=== PATIENT | male | born 1960 | race Caucasian/White ===

== ENCOUNTER 2019-07-21 09:03 | Inpatient (IN) | payer OTHER ==
[~2019-07-21] VITALS: Ht 170.2 cm; Wt 86.9 kg
[2019-07-21] MEDS ORDERED: ONDANSETRON PF 4 MG/2 ML VIAL. IV ONE (09:15)
--- NOTE | 2019-07-21 09:18 | PHYS DOC ---
General Adult HPI: HPI: 58-year-old male past medical history hyperlipidemia presents with a chief complaint of dizziness associated with nausea. Patient states sudden onset around 070 0 hours. Patient states dizziness is worse with movement and improved with remaining still. Patient denies any associated headache chest pain or shortness of breath. Patient denies any previous similar symptoms. On exam patient is alert noted x4 he has no facial droop slurred speech or focal weakness. Dizziness worse with head movement and lights. Review of Systems: Review of Systems: Constitutional: Denies fever or chills. [] Eyes: Denies change in visual acuity. [] HENT: Denies nasal congestion or sore throat. [] Respiratory: Denies cough or shortness of breath. [] Cardiovascular: Denies chest pain or edema. [] GI: Denies abdominal pain,, bloody stools or diarrhea. [Positive nausea positive vomiting] : Denies dysuria. [] Musculoskeletal: Denies back pain or joint pain. [] Integument: Denies rash. [] Neurologic: Denies headache, focal weakness or sensory changes. [Positive dizziness] Endocrine: Denies polyuria or polydipsia. [] Lymphatic: Denies swollen glands. [] Psychiatric: Denies depression or anxiety. [] Heart Score: Risk Factors: Risk Factors: DM, Current or recent (<one month) smoker, HTN, HLP, family history of CAD, obesity. Risk Scores: Score 0 - 3: 2.5% MACE over next 6 weeks - Discharge Home Score 4 - 6: 20.3% MACE over next 6 weeks - Admit for Clinical Observation Score 7 - 10: 72.7% MACE over next 6 weeks - Early Invasive Strategies Current Medications: Current Medications Medications (Trade) Dose Ordered Sig/[facility] Start Time Stop Time Status Last Admin Dose Admin Ondansetron HCl (Zofran) 4 mg 1X ONCE 07/21/19 09:15 07/21/19 09:16 UNV Physical Exam: PE: Constitutional: Well developed, well nourished, no acute distress, non-toxic appearance. [] HENT: Normocephalic, atraumatic, bilateral external ears normal, oropharynx moist, no oral exudates, nose normal. [] Eyes: PERRLA, EOMI, conjunctiva normal, no discharge. [] Neck: Normal range of motion, no tenderness, supple, no stridor. [] Cardiovascular:Heart rate regular rhythm, no murmur [] Lungs & Thorax: Bilateral breath sounds clear to auscultation [] Abdomen: Bowel sounds normal, soft, no tenderness, no masses, no pulsatile masses. [] Skin: Warm, dry, no erythema, no rash. [] Back: No tenderness, no CVA tenderness. [] Extremities: No tenderness, no cyanosis, no clubbing, ROM intact, no edema. [] Neurologic: Alert and oriented X 3, normal motor function, normal sensory function, no focal deficits noted. [] Psychologic: Affect normal, judgement normal, mood normal. [] EKG: EKG: [] EKG performed at 9:19 AM. Heart rate 59 No STEMI Sinus rhythm Radiology/Procedures: Radiology/Procedures: [] Course & Med Decision Making: Course & Med Decision Making Pertinent Labs and Imaging studies reviewed. (See chart for details) []Patient was treated with zofran and versed 1mg. Patient states feels improved post treatment--- dizziness still presents but greatly improved. Patient ambulated to bathroom with steady gait. Dragon Disclaimer: Keely Disclaimer: This electronic medical record was generated, in whole or in part, using a voice recognition dictation system. Departure Departure Impression: Primary Impression: Dizziness Additional Impression: Nausea & vomiting Disposition: ADMITTED INPATIENT Admitting Physician: DAMARIS WHARTON DO July 21, 2019 09:18
[2019-07-21 09:23] LABS: BASO # 0.1 x10^3/uL (0.0-0.2); BASO % 1 % (0-3); EOS # 0.1 x10^3/uL (0.0-0.7); EOS % 1 % (0-3); HEMOGLOBIN 16.4 g/dL (13.0-17.5); LYMPH # 2.2 x10^3/uL (1.0-4.8); LYMPH % 17 % (24-48); MEAN CORPUSCULAR HEMOGLOBIN 31 pg (25-35); MEAN CORPUSCULAR HGB CONC 35 g/dL (31-37); MEAN CORPUSCULAR VOLUME 88 fL (79-100); MONO # 0.8 x10^3/uL (0.0-1.1); MONO % 6 % (0-9); NEUT # 9.8 x10^3/uL (1.8-7.7); NEUT % 75 % (31-73); PLATELET COUNT 220 x10^3/uL (140-400); RED BLOOD COUNT 5.33 x10^6/uL (4.30-5.70); RED CELL DISTRIBUTION WIDTH 13.5 % (11.5-14.5)
[2019-07-21] MEDS ORDERED: ONDANSETRON PF 4 MG/2 ML VIAL. ONE (09:30)
[2019-07-21 09:32] LABS: CALCIUM 8.5 mg/dL (8.5-10.1); CREATININE 0.9 mg/dL (0.7-1.3); GFR 87.3; POTASSIUM 3.8 mmol/L (3.5-5.1)
[2019-07-21 09:38] LABS: ALBUMIN 3.5 g/dL (3.4-5.0); TOTAL BILIRUBIN 0.7 mg/dL (0.2-1.0)
[2019-07-21] MEDS ORDERED: ONDANSETRON PF 4 MG/2 ML VIAL. IVP ONE (09:45)
--- NOTE | 2019-07-21 10:24 | RAD ---
CT HEAD WO CONTRAST Date: 07/21/2019 9:15 AM Clinical Indication: Dizziness Comparison: None. Technique: 5 mm axial tomographic images were obtained of the head without contrast. These were viewed on brain and bone windows. One or more of the following dose reduction techniques were utilized: Automated exposure control (AEC), Adjustment of mA and/or kV according to patient size, Use of iterative reconstruction technique such as ASiR, CT scan done according to ALARA and image gently/image wisely Findings: The brain parenchyma is normal in attenuation. No intra- or extra-axial mass or fluid collection. No acute hemorrhage. The ventricles are normal in size, shape, and morphology. The mills-white matter junction is normal. The subarachnoid cisterns are patent. The visualized paranasal sinuses are normal. The visualized portions of the orbits and globes are normal. The mastoid air cells are clear. The project design engineer topogram shows no lytic lesion or fracture. Impression: No acute intracranial process. Electronically signed by: Patrick Tomas MD (07/21/2019 10:21 AM) [id number]
[2019-07-21] MEDS ORDERED: MIDAZOLAM HCL/PF 5 MG/5 ML VIAL. IV ONE (10:45)
[2019-07-21] MEDS ORDERED: MIDAZOLAM HCL/PF 5 MG/5 ML VIAL. NS ONE (11:00)
--- NOTE | 2019-07-21 11:04 | EKG ---
[facility] [address] [place] [address] Test Date: 2019-07-21 Test Time: 09:19:26 Pat Name: MIHAELA DOUGLAS Department: Room: Gender: M Applications Programmer Analyst: : [id number] Requested By: DAMARIS SORENSON Order Number: [id number] Reading MD: Adán Romero Measurements Intervals [place] Rate: 59 P: 28 OK: 166 QRS: 44 QRSD: 90 T: 24 QT: 438 QTc: 438 Interpretive Statements SINUS RHYTHM EARLY REPOLARIZATION ABNORMALITY Electronically Signed On 07-22-2019 8:21:38 CDT by Adán Romero
[2019-07-21] MEDS ORDERED: IOHEXOL 300 MG/ML 100ML VIAL. IV ONE (11:15)
--- NOTE | 2019-07-21 11:35 | PDOC1 ---
History and Physical Date of Admission Date of Admission DATE: 07/21/19 TIME: 11:35 Identification/Chief Complaint Chief Complaint Nausea and vomiting Source Source: Patient History of Present Illness History of Present Illness Mr Dailey is a 58 yo M w/ PMHx hyperlipidemia who p/w dizziness associated with nausea. Patient states sudden onset around 0700 this morning, 07/21/2019 while at work. He notes he took his cholesterol med and vitamins on an empty stomach, which is unusual for him. Patient stated dizziness wass worse with movement and improved with remaining still. Patient denies any associated headache chest pain or shortness of breath. Patient denies any previous similar symptoms. On exam patient is alert noted x4 he has no facial droop slurred speech or focal weakness. He underwent negative CT head and CTA head and neck and found ground glass opacities in bilateral upper lobes and therefore ED tested him for COVID 19, admitted for further care. On further ROS he notes his right elbow has been bothering him at work lately. Glucose 221, WBC 13K, troponin negative. EKG NSR. Past Medical History Cardiovascular: Hyperlipidemia Past Surgical History Past Surgical History: No pertinent history Family History Family History: Cancer (Bone cancer in mother), Diabetes (Father) Social History Smoke: Quit (1997 Quit) ALCOHOL: social Drugs: None Current Medications Current Medications Current Medications Ondansetron HCl (Zofran) 4 mg 1X ONCE IV ; Start 07/21/19 at 09:15; Stop 07/21/19 at 09:16; Status DC Ondansetron HCl (Zofran) 4 mg STK-MED ONCE .ROUTE ; Start 07/21/19 at 09:30; Stop 07/21/19 at 09:30; Status DC Ondansetron HCl (Zofran) 4 mg 1X ONCE IVP Last administered on 07/21/19at 09:38; Start 07/21/19 at 09:45; Stop 07/21/19 at 09:46; Status DC Midazolam HCl (Versed) 2.5 mg 1X ONCE IV ; Start 07/21/19 at 10:45; Stop 07/21/19 at 10:48; Status DC Midazolam HCl (Versed) 1 mg 1X ONCE NS Last administered on 07/21/19at 11:05; Start 07/21/19 at 11:00; Stop 07/21/19 at 11:01; Status DC Iohexol (Omnipaque 300 Mg/ml) 75 ml 1X ONCE IV Last administered on 07/21/19at 11:22; Start 07/21/19 at 11:15; Stop 07/21/19 at 11:16; Status DC Allergies Allergies: Coded Allergies: No Known Drug Allergies (Unverified , 07/21/19) ROS General: No: Chills, Night Sweats, Fatigue, Malaise, Appetite, Other PSYCHOLOGICAL ROS: No: Anxiety, Behavioral Disorder, Concentration difficultie, Decreased libido, Depression, Disorientation, Hallucinations, Hostility, Irritablity, Memory difficulties, Mood Swings, Obsessive thoughts, Physical abuse, Sexual abuse, Sleep disturbances, Suicidal ideation, Other Eyes: No Blurry vision, No Decreased vision, No Double vision, No Dry eyes, No Excessive tearing, No Eye Pain, No Itchy Eyes, No Loss of vision, No Photophobia, No Scotomata, No Uses contacts, No Uses glasses, No Other HEENT: No: Heacaches, Visual Changes, Hearing change, Nasal congestion, Nasal discharge, Oral lesions, Sinus pain, Sore Throat, Epistaxis, Sneezing, Snoring, Tinnitus, Vertigo, Vocal changes, Other ALLERGY AND IMMUNOLOGY: No: Hives, Insect Bite Sensitivity, Itchy/Watery Eyes, Nasal Congestion, Post Nasal Drip, Seasonal Allergies, Other Hematological and Lymphatic: No: Bleeding Problems, Blood Clots, Blood Transfusions, Brusing, Night Sweats, Pallor, Swollen Lymph Nodes, Other ENDOCRINE: No: Breast Changes, Galactorrhea, Hair Pattern Changes, Hot Flashes, Malaise/lethargy, Mood Swings, Palpitations, Polydipsia/polyuria, Skin Changes, Temperature Intolerance, Unexpected Weight Changes, Other Breast: No New/Changing Breast Lumps, No Nipple changes, No Nipple discharge, No Other Respiratory: No: Cough, Hemoptysis, Orthopnea, Pleuritic Pain, Shortness of breath, SOB with excertion, Sputum Changes, Stridor, Tachypnea, Wheezing, Other Cardiovascular: No Chest Pain, No Palpitations, No Orthopnea, No Paroxysmal Noc. Dyspnea, No Edema, No Lt Headedness, No Other Gastrointestinal: Yes Nausea, Yes Vomiting; No Abdominal Pain, No Diarrhea, No Constipation, No Melena, No Hematochezia, No Other Genitourinary: No Dysuria, No Frequency, No Incontinence, No Hematuria, No Retention, No Discharge, No Urgency, No Pain, No Flank Pain, No Other, No , No , No , No , No , No , No Musculoskeletal: Yes Joint Pain; No Gait Disturbance, No Joint Stiffness, No Joint Swelling, No Muscle Pain, No Muscular Weakness, No Pain In:, No Swelling In:, No Other Neurological: Yes Dizziness; No Behavorial Changes, No Bowel/Bladder ControlChng, No Confusion, No Gait Disturbance, No Headaches, No Impaired Coord/balance, No Memory Loss, No Numbness/Tingling, No Seizures, No Speech Problems, No Tremors, No Visual Changes, No Weakness, No Other Skin: No Dry Skin, No Eczema, No Hair Changes, No Lumps, No Mole Changes, No Mottling, No Nail Changes, No Pruritus, No Rash, No Skin Lesion Changes, No Other, No Acne Physical Exam General: Alert, Oriented X3, Cooperative, No acute distress HEENT: Atraumatic, PERRLA, EOMI, Mucous membr. moist/pink Lungs: Clear to auscultation, Normal air movement Heart: S1S2, RRR, no thrills, no rubs, no gallops, no murmurs Abdomen: Normal bowel sounds, Soft, No tenderness, No hepatosplenomegaly, No masses Rectal Exam: not examined Extremities: No clubbing, No cyanosis, No edema, Normal pulses, No tenderness/swelling, Other (Right elbow anconeus tenderness) Skin: No rashes, No breakdown, No significant lesion Neuro: Normal gait, Normal speech, Strength at 5/5 X4 ext, Normal tone, Sensation intact, Cranial nerves 3-12 NL, Reflexes 2+ Psych/Mental Status: Mental status NL, Mood NL Vitals Vitals Vital Signs Date Time Temp Pulse Resp B/P (MAP) Pulse Ox O2 Delivery O2 Flow Rate FiO2 07/21/19 11:04 74 16 130/78 (95) 93 Room Air 07/21/19 09:03 97.5 97.5 Labs Labs Laboratory Tests Test 07/21/19 09:10 White Blood Count 13.0 x10^3/uL (4.0-11.0) Red Blood Count 5.33 x10^6/uL (4.30-5.70) Hemoglobin 16.4 g/dL (13.0-17.5) Hematocrit 47.0 % (39.0-53.0) Mean Corpuscular Volume 88 fL (79-100) Mean Corpuscular Hemoglobin 31 pg (25-35) Mean Corpuscular Hemoglobin Concent 35 g/dL (31-37) Red Cell Distribution Width 13.5 % (11.5-14.5) Platelet Count 220 x10^3/uL (140-400) Neutrophils (%) (Auto) 75 % (31-73) Lymphocytes (%) (Auto) 17 % (24-48) Monocytes (%) (Auto) 6 % (0-9) Eosinophils (%) (Auto) 1 % (0-3) Basophils (%) (Auto) 1 % (0-3) Neutrophils # (Auto) 9.8 x10^3/uL (1.8-7.7) Lymphocytes # (Auto) 2.2 x10^3/uL (1.0-4.8) Monocytes # (Auto) 0.8 x10^3/uL (0.0-1.1) Eosinophils # (Auto) 0.1 x10^3/uL (0.0-0.7) Basophils # (Auto) 0.1 x10^3/uL (0.0-0.2) Sodium Level 138 mmol/L (136-145) Potassium Level 3.8 mmol/L (3.5-5.1) Chloride Level 103 mmol/L (98-107) Carbon Dioxide Level 24 mmol/L (21-32) Anion Gap 11 (6-14) Blood Urea Nitrogen 12 mg/dL (8-26) Creatinine 0.9 mg/dL (0.7-1.3) Estimated GFR (Cockcroft-Gault) 87.3 BUN/Creatinine Ratio 13 (6-20) Glucose Level 221 mg/dL (70-99) Calcium Level 8.5 mg/dL (8.5-10.1) Total Bilirubin 0.7 mg/dL (0.2-1.0) Aspartate Amino Transf (AST/SGOT) 22 U/L (15-37) Alanine Aminotransferase (ALT/SGPT) 36 U/L (16-63) Alkaline Phosphatase 58 U/L (46-116) Creatine Kinase 129 U/L (39-308) Creatine Kinase MB (Mass) 1.3 ng/mL (0.0-3.6) Creatine Kinase MB Relative Index 1.0 % (0-4) Troponin I Quantitative < 0.017 ng/mL (0.000-0.055) Total Protein 7.0 g/dL (6.4-8.2) Albumin 3.5 g/dL (3.4-5.0) Albumin/Globulin Ratio 1.0 (1.0-1.7) Laboratory Tests Test 07/21/19 09:10 White Blood Count 13.0 x10^3/uL (4.0-11.0) Red Blood Count 5.33 x10^6/uL (4.30-5.70) Hemoglobin 16.4 g/dL (13.0-17.5) Hematocrit 47.0 % (39.0-53.0) Mean Corpuscular Volume 88 fL (79-100) Mean Corpuscular Hemoglobin 31 pg (25-35) Mean Corpuscular Hemoglobin Concent 35 g/dL (31-37) Red Cell Distribution Width 13.5 % (11.5-14.5) Platelet Count 220 x10^3/uL (140-400) Neutrophils (%) (Auto) 75 % (31-73) Lymphocytes (%) (Auto) 17 % (24-48) Monocytes (%) (Auto) 6 % (0-9) Eosinophils (%) (Auto) 1 % (0-3) Basophils (%) (Auto) 1 % (0-3) Neutrophils # (Auto) 9.8 x10^3/uL (1.8-7.7) Lymphocytes # (Auto) 2.2 x10^3/uL (1.0-4.8) Monocytes # (Auto) 0.8 x10^3/uL (0.0-1.1) Eosinophils # (Auto) 0.1 x10^3/uL (0.0-0.7) Basophils # (Auto) 0.1 x10^3/uL (0.0-0.2) Sodium Level 138 mmol/L (136-145) Potassium Level 3.8 mmol/L (3.5-5.1) Chloride Level 103 mmol/L (98-107) Carbon Dioxide Level 24 mmol/L (21-32) Anion Gap 11 (6-14) Blood Urea Nitrogen 12 mg/dL (8-26) Creatinine 0.9 mg/dL (0.7-1.3) Estimated GFR (Cockcroft-Gault) 87.3 BUN/Creatinine Ratio 13 (6-20) Glucose Level 221 mg/dL (70-99) Calcium Level 8.5 mg/dL (8.5-10.1) Total Bilirubin 0.7 mg/dL (0.2-1.0) Aspartate Amino Transf (AST/SGOT) 22 U/L (15-37) Alanine Aminotransferase (ALT/SGPT) 36 U/L (16-63) Alkaline Phosphatase 58 U/L (46-116) Creatine Kinase 129 U/L (39-308) Creatine Kinase MB (Mass) 1.3 ng/mL (0.0-3.6) Creatine Kinase MB Relative Index 1.0 % (0-4) Troponin I Quantitative < 0.017 ng/mL (0.000-0.055) Total Protein 7.0 g/dL (6.4-8.2) Albumin 3.5 g/dL (3.4-5.0) Albumin/Globulin Ratio 1.0 (1.0-1.7) Images Images Head CT non contrast: The brain parenchyma is normal in attenuation. No intra- or extra-axial mass or fluid collection. No acute hemorrhage. The ventricles are normal in size, shape, and morphology. The mills-white matter junction is normal. The subarachnoid cisterns are patent. The visualized paranasal sinuses are normal. The visualized portions of the orbits and globes are normal. The mastoid air cells are clear. The it network architect topogram shows no lytic lesion or fracture. Impression: No acute intracranial process. Head CTA: ICA: No stenosis, occlusion or aneurysm. MCA: No stenosis, occlusion or aneurysm. MELODY: No stenosis, occlusion or aneurysm. COMMUNITY HEALTH OUTREACH WORKER: No stenosis, occlusion or aneurysm. Basilar artery: No stenosis, occlusion or aneurysm. Distal vertebral arteries: No stenosis, occlusion or aneurysm. CT angiogram neck: Aortic arch: Conventional arch anatomy Common carotid arteries: No stenosis, occlusion or dissection. Internal carotid arteries: No stenosis, occlusion or dissection. External carotid arteries: Patent Vertebral arteries: High-grade stenosis of the left proximal vertebral artery Mild septal thickening with biapical ground glass opacities. Mildly enlarged right paratracheal lymph node measures 1.2 x 0.9 cm (series 3 image 62). Bones: Moderate multilevel cervical spondylosis most prominent C5-C6 and C6-C7. Impression: 1. No large vessel occlusion intracranial or within the neck. 2. High-grade stenosis of the left vertebral artery origin. 3. Mild septal thickening with biapical ground glass opacities, may represent pulmonary edema or atypical infection. CXR: AP view was taken of the chest. Lungs appear clear on the chest x-ray. Poor inspiration or mild atelectasis could potentially account for the changes on the CT arteriogram. Heart is normal in size. There is not evidence of heart failure or pulmonary edema. There is no effusion. IMPRESSION: 1. No acute infiltrates. VTE Prophylaxis Ordered VTE Prophylaxis Devices: No VTE Pharmacological Prophylaxi: Yes Assessment/Plan Assessment/Plan A/P: Nausea and vomiting - IV antiemetics. Will ADAT Dizziness - resolved by the time I examined him. Neurology was called by ED staff Leukocytosis - CBC 13K Abnormal chest CT - no COVID exposures, testing pending. 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 Stopped smoking 22 years ago. Hyperglycemia - will check A1c. father with hx of DM2 HLD - statin Right elbow pain - focal pain at anconeus muscle. Will have PT evaluate for bursitis/tennis elbow exercises. Rest. NSAIDs FEN - Regular diet, ADAT PPX - lovenox FULL CODE Dispo - inpatient for above NICCI MIRANDA MD July 21, 2019 11:35
--- NOTE | 2019-07-21 11:42 | RAD ---
CT ANGIOGRAPHY HEAD AND NECK History:Dizziness. Nausea and vomiting Technique: After bolus of intravenous contrast, volumetric CT data acquisition was acquired of the head and neck. Multiplanar reconstruction images to include MIP and 3-D reconstruction images are submitted. Exposure: One or more of the following individualized dose reduction techniques were utilized for this examination: 1. Automated exposure control 2. Adjustment of the mA and/or kV according to patient size 3. Use of iterative reconstruction technique. Comparison: July 21, 2019 Any determination of stenosis is based on NASCET criteria. Head CTA: ICA: No stenosis, occlusion or aneurysm. MCA: No stenosis, occlusion or aneurysm. MELODY: No stenosis, occlusion or aneurysm. VERIFICATION SPECIALIST: No stenosis, occlusion or aneurysm. Basilar artery: No stenosis, occlusion or aneurysm. Distal vertebral arteries: No stenosis, occlusion or aneurysm. CT angiogram neck: Aortic arch: Conventional arch anatomy Common carotid arteries: No stenosis, occlusion or dissection. Internal carotid arteries: No stenosis, occlusion or dissection. External carotid arteries: Patent Vertebral arteries: High-grade stenosis of the left proximal vertebral artery Mild septal thickening with biapical ground glass opacities. Mildly enlarged right paratracheal lymph node measures 1.2 x 0.9 cm (series 3 image 62). Bones: Moderate multilevel cervical spondylosis most prominent C5-C6 and C6-C7. Impression: 1. No large vessel occlusion intracranial or within the neck. 2. High-grade stenosis of the left vertebral artery origin. 3. Mild septal thickening with biapical ground glass opacities, may represent pulmonary edema or atypical infection. Electronically signed by: Teja Lewis DO (07/21/2019 11:39 AM) [id number]
--- NOTE | 2019-07-21 12:59 | RAD ---
AP chest. HISTORY: Abnormal lung findings on CT arteriogram of the neck. AP view was taken of the chest. Lungs appear clear on the chest x-ray. Poor inspiration or mild atelectasis could potentially account for the changes on the CT arteriogram. Heart is normal in size. There is not evidence of heart failure or pulmonary edema. There is no effusion. IMPRESSION: 1. No acute infiltrates. Electronically signed by: Rg Jacinto MD (07/21/2019 12:56 PM) [id number]
[2019-07-21 14:39] VITALS: BP 136/79
[2019-07-21] MEDS ORDERED: DOCUSATE SODIUM 100 MG CAPSULE. PO PRN (15:00)
[2019-07-21] MEDS ORDERED: LORazepam 0.5 MG TABLET PO PRN (15:00)
[2019-07-21] MEDS ORDERED: ZOLPIDEM 5 MG TABLET. PO PRN (15:00)
[2019-07-21] MEDS ORDERED: ENOXAPARIN 40 MG/0.4 ML SYRINGE. SQ SCH (15:00)
[2019-07-21] MEDS ORDERED: ONDANSETRON PF 4 MG/2 ML VIAL. IV PRN (15:00)
[2019-07-21] MEDS ORDERED: ACETAMINOPHEN 325 MG TABLET. PO PRN (15:00)
--- NOTE | 2019-07-21 16:55 | PDOC2 ---
NEUROLOGY CONSULT Date of Admission Date of Admission DATE: 07/21/19 TIME: 16:49 Reason for Consult Reason for Consult: Vertigo Referring Physician Referring Physician: Dr. Mendoza Source Source: Chart review, Patient History of Present Illness History of Present Illness The patient is a 58-year-old right-handed male who got up for work this morning. He felt like there was some fullness in the left ear. He suddenly had vertigo and nausea. He blames taking his vitamins on an empty stomach. There was no headache, diplopia, dysphagia, dysarthria, numbness, weakness, tinnitus, or hea ring loss. Symptoms were worse with movement and better when he remains still. He is now feeling fine. There is no prior history of vestibulopathy. CT angiogram showed ground glass opacities in bilateral upper lobes and therefore ED tested him for COVID 19, admitted for further care. Past Medical History Cardiovascular: Hyperlipidemia Past Surgical History Past Surgical History: No pertinent history Family History Family History: Cancer Social History Social History , steele, no alcohol or tobacco. Current Medications Current Medications Current Medications Ondansetron HCl (Zofran) 4 mg 1X ONCE IV ; Start 07/21/19 at 09:15; Stop 07/21/19 at 09:16; Status DC Ondansetron HCl (Zofran) 4 mg STK-MED ONCE .ROUTE ; Start 07/21/19 at 09:30; Stop 07/21/19 at 09:30; Status DC Ondansetron HCl (Zofran) 4 mg 1X ONCE IVP Last administered on 07/21/19at 09:38; Start 07/21/19 at 09:45; Stop 07/21/19 at 09:46; Status DC Midazolam HCl (Versed) 2.5 mg 1X ONCE IV ; Start 07/21/19 at 10:45; Stop 07/21/19 at 10:48; Status DC Midazolam HCl (Versed) 1 mg 1X ONCE NS Last administered on 07/21/19at 11:05; Start 07/21/19 at 11:00; Stop 07/21/19 at 11:01; Status DC Iohexol (Omnipaque 300 Mg/ml) 75 ml 1X ONCE IV Last administered on 07/21/19at 11:22; Start 07/21/19 at 11:15; Stop 07/21/19 at 11:16; Status DC Ondansetron HCl (Zofran) 4 mg PRN Q4HRS PRN IV NAUSEA/VOMITING; Start 07/21/19 at 15:00 Zolpidem Tartrate (Ambien) 5 mg PRN QHS PRN PO INSOMNIA; Start 07/21/19 at 15:00 Acetaminophen (Tylenol) 650 mg PRN Q4HRS PRN PO TEMP OVER 100.4F OR MILD PAIN; Start 07/21/19 at 15:00 Docusate Sodium (Colace) 100 mg PRN BID PRN PO HARD STOOLS; Start 07/21/19 at 15:00 Lorazepam (Ativan) 0.5 mg PRN Q4HRS PRN PO ANXIETY / AGITATION; Start 07/21/19 at 15:00 Enoxaparin Sodium (Lovenox 40mg Syringe) 40 mg Q24H SQ Last administered on 07/21/19at 15:56; Start 07/21/19 at 15:00 Atorvastatin Calcium (Lipitor) 40 mg QHS PO ; Start 07/21/19 at 21:00 Diclofenac Sodium (Voltaren) 1 caitlyn BID TP ; Start 07/21/19 at 16:30 Allergies Allergies: Coded Allergies: No Known Drug Allergies (Unverified , 07/21/19) ROS Review of System Negative for fever, chills, weight loss, shortness of breath, chest pain, indigestion, hematochezia, melena, and dysuria. Full 14-point review of systems is negative. Physical Exam Physical Examination General: Well-developed, well-nourished white male in no acute distress HEENT: Normocephalic andatraumatic. Tympanic membranes clear.Temporal arteriespulsatile and nontender. Neck: Supple without bruit, no meningismus Musculoskeletal: Stability:see neurologic. Gait exam:see neurologic. Tone:see n eurologic.Strength:see neurologic. Neurological: Mental Status:intact, orientation, memory, attention span/concentration, la nguage, fund of knowledge normal. Cranial Nerves:Pupils equal and reactive to light, extraocular movements areintact, visual cisneros are full to confrontation. Facial sensation is normal. There is no facial asymmetry. Vestibulo-ocular reflex is intact. Palate elevates and tongue protrudes in midline. All other cranial related problems are negative except as mentioned before.Reflexes:2+ and symmetric with flexor plantar responses. Motor:5/5 strength with normal tone and bulk. Coordination:Finger-nose finger and gmif-ry-ebsh testing are normal. Rapid alternating movements and fine finger movements are intact. Gait:Normal, including tandem. Sensory:Normal pinprick, vibration, light touch, proprioception. Vitals VITALS Vital Signs Date Time Temp Pulse Resp B/P (MAP) Pulse Ox O2 Delivery O2 Flow Rate FiO2 07/21/19 14:39 97.8 75 18 136/79 (98) 99 Room Air 97.8 Labs Labs Laboratory Tests Test 07/21/19 09:10 07/21/19 12:35 White Blood Count 13.0 x10^3/uL (4.0-11.0) Red Blood Count 5.33 x10^6/uL (4.30-5.70) Hemoglobin 16.4 g/dL (13.0-17.5) Hematocrit 47.0 % (39.0-53.0) Mean Corpuscular Volume 88 fL (79-100) Mean Corpuscular Hemoglobin 31 pg (25-35) Mean Corpuscular Hemoglobin Concent 35 g/dL (31-37) Red Cell Distribution Width 13.5 % (11.5-14.5) Platelet Count 220 x10^3/uL (140-400) Neutrophils (%) (Auto) 75 % (31-73) Lymphocytes (%) (Auto) 17 % (24-48) Monocytes (%) (Auto) 6 % (0-9) Eosinophils (%) (Auto) 1 % (0-3) Basophils (%) (Auto) 1 % (0-3) Neutrophils # (Auto) 9.8 x10^3/uL (1.8-7.7) Lymphocytes # (Auto) 2.2 x10^3/uL (1.0-4.8) Monocytes # (Auto) 0.8 x10^3/uL (0.0-1.1) Eosinophils # (Auto) 0.1 x10^3/uL (0.0-0.7) Basophils # (Auto) 0.1 x10^3/uL (0.0-0.2) Sodium Level 138 mmol/L (136-145) Potassium Level 3.8 mmol/L (3.5-5.1) Chloride Level 103 mmol/L (98-107) Carbon Dioxide Level 24 mmol/L (21-32) Anion Gap 11 (6-14) Blood Urea Nitrogen 12 mg/dL (8-26) Creatinine 0.9 mg/dL (0.7-1.3) Estimated GFR (Cockcroft-Gault) 87.3 BUN/Creatinine Ratio 13 (6-20) Glucose Level 221 mg/dL (70-99) Calcium Level 8.5 mg/dL (8.5-10.1) Total Bilirubin 0.7 mg/dL (0.2-1.0) Aspartate Amino Transf (AST/SGOT) 22 U/L (15-37) Alanine Aminotransferase (ALT/SGPT) 36 U/L (16-63) Alkaline Phosphatase 58 U/L (46-116) Creatine Kinase 129 U/L (39-308) Creatine Kinase MB (Mass) 1.3 ng/mL (0.0-3.6) Creatine Kinase MB Relative Index 1.0 % (0-4) Troponin I Quantitative < 0.017 ng/mL (0.000-0.055) < 0.017 ng/mL (0.000-0.055) Total Protein 7.0 g/dL (6.4-8.2) Albumin 3.5 g/dL (3.4-5.0) Albumin/Globulin Ratio 1.0 (1.0-1.7) Thyroid Stimulating Hormone (TSH) 1.005 uIU/mL (0.358-3.74) Laboratory Tests Test 07/21/19 09:10 07/21/19 12:35 White Blood Count 13.0 x10^3/uL (4.0-11.0) Red Blood Count 5.33 x10^6/uL (4.30-5.70) Hemoglobin 16.4 g/dL (13.0-17.5) Hematocrit 47.0 % (39.0-53.0) Mean Corpuscular Volume 88 fL (79-100) Mean Corpuscular Hemoglobin 31 pg (25-35) Mean Corpuscular Hemoglobin Concent 35 g/dL (31-37) Red Cell Distribution Width 13.5 % (11.5-14.5) Platelet Count 220 x10^3/uL (140-400) Neutrophils (%) (Auto) 75 % (31-73) Lymphocytes (%) (Auto) 17 % (24-48) Monocytes (%) (Auto) 6 % (0-9) Eosinophils (%) (Auto) 1 % (0-3) Basophils (%) (Auto) 1 % (0-3) Neutrophils # (Auto) 9.8 x10^3/uL (1.8-7.7) Lymphocytes # (Auto) 2.2 x10^3/uL (1.0-4.8) Monocytes # (Auto) 0.8 x10^3/uL (0.0-1.1) Eosinophils # (Auto) 0.1 x10^3/uL (0.0-0.7) Basophils # (Auto) 0.1 x10^3/uL (0.0-0.2) Sodium Level 138 mmol/L (136-145) Potassium Level 3.8 mmol/L (3.5-5.1) Chloride Level 103 mmol/L (98-107) Carbon Dioxide Level 24 mmol/L (21-32) Anion Gap 11 (6-14) Blood Urea Nitrogen 12 mg/dL (8-26) Creatinine 0.9 mg/dL (0.7-1.3) Estimated GFR (Cockcroft-Gault) 87.3 BUN/Creatinine Ratio 13 (6-20) Glucose Level 221 mg/dL (70-99) Calcium Level 8.5 mg/dL (8.5-10.1) Total Bilirubin 0.7 mg/dL (0.2-1.0) Aspartate Amino Transf (AST/SGOT) 22 U/L (15-37) Alanine Aminotransferase (ALT/SGPT) 36 U/L (16-63) Alkaline Phosphatase 58 U/L (46-116) Creatine Kinase 129 U/L (39-308) Creatine Kinase MB (Mass) 1.3 ng/mL (0.0-3.6) Creatine Kinase MB Relative Index 1.0 % (0-4) Troponin I Quantitative < 0.017 ng/mL (0.000-0.055) < 0.017 ng/mL (0.000-0.055) Total Protein 7.0 g/dL (6.4-8.2) Albumin 3.5 g/dL (3.4-5.0) Albumin/Globulin Ratio 1.0 (1.0-1.7) Thyroid Stimulating Hormone (TSH) 1.005 uIU/mL (0.358-3.74) Images Images CT HEAD WO CONTRAST Date: 07/21/2019 9:15 AM Clinical Indication: Dizziness Comparison: None. Technique: 5 mm axial tomographic images were obtained of the head without contrast. These were viewed on brain and bone windows. One or more of the following dose reduction techniques were utilized: Automated exposure control (AEC), Adjustment of mA and/or kV according to patient size, Use of iterative reconstruction technique such as ASiR, CT scan done according to ALARA and image gently/image wisely Findings: The brain parenchyma is normal in attenuation. No intra- or extra-axial mass or fluid collection. No acute hemorrhage. The ventricles are normal in size, shape, and morphology. The mills-white matter junction is normal. The subarachnoid cisterns are patent. The visualized paranasal sinuses are normal. The visualized portions of the orbits and globes are normal. The mastoid air cells are clear. The meatman topogram shows no lytic lesion or fracture. Impression: No acute intracranial process. CT ANGIOGRAPHY HEAD AND NECK History:Dizziness. Nausea and vomiting Technique: After bolus of intravenous contrast, volumetric CT data acquisition was acquired of the head and neck. Multiplanar reconstruction images to include MIP and 3-D reconstruction images are submitted. Exposure: One or more of the following individualized dose reduction techniques were utilized for this examination: 1. Automated exposure control 2. Adjustment of the mA and/or kV according to patient size 3. Use of iterative reconstruction technique. Comparison: July 21, 2019 Any determination of stenosis is based on NASCET criteria. Head CTA: ICA: No stenosis, occlusion or aneurysm. MCA: No stenosis, occlusion or aneurysm. MELODY: No stenosis, occlusion or aneurysm. BRUSH MAKER: No stenosis, occlusion or aneurysm. Basilar artery: No stenosis, occlusion or aneurysm. Distal vertebral arteries: No stenosis, occlusion or aneurysm. CT angiogram neck: Aortic arch: Conventional arch anatomy Common carotid arteries: No stenosis, occlusion or dissection. Internal carotid arteries: No stenosis, occlusion or dissection. External carotid arteries: Patent Vertebral arteries: High-grade stenosis of the left proximal vertebral artery Mild septal thickening with biapical ground glass opacities. Mildly enlarged right paratracheal lymph node measures 1.2 x 0.9 cm (series 3 image 62). Bones: Moderate multilevel cervical spondylosis most prominent C5-C6 and C6-C7. Impression: 1. No large vessel occlusion intracranial or within the neck. 2. High-grade stenosis of the left vertebral artery origin. 3. Mild septal thickening with biapical ground glass opacities, may represent pulmonary edema or atypical infection. Assessment/Plan Assessment/Plan Impression: History consistent with vestibular neuronitis, patient thinks that it was his vitamins taking on an empty stomach. In any event, exam is now normal, no evidence of peripheral or central vestibular dysfunction. Being ruled out for COVID19, patient asymptomatic, had an abnormal chest on the CT angiogram. Recommendations: No additional neurological tests or treatments needed unless symptoms recur Aim for discharge tomorrow. Thank you for letting me help with the patient's care. MIHAELA HUBBARD MD July 21, 2019 16:55
[2019-07-21] MEDS: DICLOFENAC SODIUM 1% TOPICAL GEL 100GM TUBE. TP SCH ×2 (18:07→21:22)
[2019-07-21 19:15] VITALS: BP 123/76
[2019-07-21] MEDS ORDERED: ATORVASTATIN CALCIUM 40 MG TABLET. PO SCH (21:00)
[2019-07-21 23:00] VITALS: BP 129/72
[2019-07-22 00:07] LABS: HEMOGLOBIN A1C 5.2 % (4.8-5.6)
[2019-07-22 03:15] VITALS: BP 135/70
[2019-07-22 07:00] VITALS: BP 132/77
--- NOTE | 2019-07-22 08:10 | PDOC ---
PROGRESS NOTES Chief Complaint Chief Complaint A/P: Nausea and vomiting - IV antiemetics. Will ADAT Dizziness - resolved by the time I examined him. Neurology was called by ED staff Leukocytosis - CBC 13K Abnormal chest CT - no COVID exposures, testing pending. 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 Stopped smoking 22 years ago. Hyperglycemia - will check A1c. father with hx of DM2 HLD - statin Right elbow pain - focal pain at anconeus muscle. Will have PT evaluate for bursitis/tennis elbow exercises. Rest. NSAIDs FEN - Regular diet, ADAT PPX - lovenox FULL CODE Dispo - inpatient for above History of Present Illness History of Present Illness Mr Dailey is a 58 yo M w/ PMHx hyperlipidemia who p/w dizziness associated with nausea. Patient states sudden onset around 0700 this morning, 07/21/2019 while at work. He notes he took his cholesterol med and vitamins on an empty stomach, which is unusual for him. Patient stated dizziness wass worse with movement and improved with remaining still. Patient denies any associated headache chest p ain or shortness of breath. Patient denies any previous similar symptoms. On exam patient is alert noted x4 he has no facial droop slurred speech or focal weakness. He underwent negative CT head and CTA head and neck and found ground glass opacities in bilateral upper lobes and therefore ED tested him for COVID 19, admitted for further care. On further ROS he notes his right elbow has been bothering him at work lately. Glucose 221, WBC 13K, troponin negative. EKG NSR. Symptoms resolved. Seen by neurology, started on aspirin therapy, he will continue his statin therapy at home. His right elbow feels improved with diclo fenac gel. CO VID 19 test came back negative. He is ready for discharge home will take the next 5 days off work. Vitals Vitals Vital Signs Date Time Temp Pulse Resp B/P (MAP) Pulse Ox O2 Delivery O2 Flow Rate FiO2 07/22/19 07:00 97.5 71 18 132/77 (95) 100 Room Air 97.5 Physical Exam General: Alert, Oriented X3, Cooperative, No acute distress Abdomen: Normal bowel sounds, Soft, No tenderness, No hepatosplenomegaly, No masses Extremities: No clubbing, No cyanosis, No edema, Normal pulses, No tenderness/swelling, Other (Right elbow anconeus tenderness) Skin: No rashes, No breakdown, No significant lesion Labs LABS Laboratory Tests Test 07/21/19 09:10 07/21/19 12:35 White Blood Count 13.0 x10^3/uL (4.0-11.0) Red Blood Count 5.33 x10^6/uL (4.30-5.70) Hemoglobin 16.4 g/dL (13.0-17.5) Hematocrit 47.0 % (39.0-53.0) Mean Corpuscular Volume 88 fL (79-100) Mean Corpuscular Hemoglobin 31 pg (25-35) Mean Corpuscular Hemoglobin Concent 35 g/dL (31-37) Red Cell Distribution Width 13.5 % (11.5-14.5) Platelet Count 220 x10^3/uL (140-400) Neutrophils (%) (Auto) 75 % (31-73) Lymphocytes (%) (Auto) 17 % (24-48) Monocytes (%) (Auto) 6 % (0-9) Eosinophils (%) (Auto) 1 % (0-3) Basophils (%) (Auto) 1 % (0-3) Neutrophils # (Auto) 9.8 x10^3/uL (1.8-7.7) Lymphocytes # (Auto) 2.2 x10^3/uL (1.0-4.8) Monocytes # (Auto) 0.8 x10^3/uL (0.0-1.1) Eosinophils # (Auto) 0.1 x10^3/uL (0.0-0.7) Basophils # (Auto) 0.1 x10^3/uL (0.0-0.2) Sodium Level 138 mmol/L (136-145) Potassium Level 3.8 mmol/L (3.5-5.1) Chloride Level 103 mmol/L (98-107) Carbon Dioxide Level 24 mmol/L (21-32) Anion Gap 11 (6-14) Blood Urea Nitrogen 12 mg/dL (8-26) Creatinine 0.9 mg/dL (0.7-1.3) Estimated GFR (Cockcroft-Gault) 87.3 BUN/Creatinine Ratio 13 (6-20) Glucose Level 221 mg/dL (70-99) Hemoglobin A1c 5.2 % (4.8-5.6) Calcium Level 8.5 mg/dL (8.5-10.1) Total Bilirubin 0.7 mg/dL (0.2-1.0) Aspartate Amino Transf (AST/SGOT) 22 U/L (15-37) Alanine Aminotransferase (ALT/SGPT) 36 U/L (16-63) Alkaline Phosphatase 58 U/L (46-116) Creatine Kinase 129 U/L (39-308) Creatine Kinase MB (Mass) 1.3 ng/mL (0.0-3.6) Creatine Kinase MB Relative Index 1.0 % (0-4) Troponin I Quantitative < 0.017 ng/mL (0.000-0.055) < 0.017 ng/mL (0.000-0.055) Total Protein 7.0 g/dL (6.4-8.2) Albumin 3.5 g/dL (3.4-5.0) Albumin/Globulin Ratio 1.0 (1.0-1.7) Vitamin B12 Level 640 pg/mL (247-911) Thyroid Stimulating Hormone (TSH) 1.005 uIU/mL (0.358-3.74) Assessment and Plan Assessmemt and Plan Problems Medical Problems: (1) Dizziness Status: Acute (2) Nausea & vomiting Status: Acute Comment Review of Relevant I have reviewed the following items connor (where applicable) has been applied. Labs Laboratory Tests Test 07/21/19 09:10 07/21/19 12:35 White Blood Count 13.0 x10^3/uL (4.0-11.0) Red Blood Count 5.33 x10^6/uL (4.30-5.70) Hemoglobin 16.4 g/dL (13.0-17.5) Hematocrit 47.0 % (39.0-53.0) Mean Corpuscular Volume 88 fL (79-100) Mean Corpuscular Hemoglobin 31 pg (25-35) Mean Corpuscular Hemoglobin Concent 35 g/dL (31-37) Red Cell Distribution Width 13.5 % (11.5-14.5) Platelet Count 220 x10^3/uL (140-400) Neutrophils (%) (Auto) 75 % (31-73) Lymphocytes (%) (Auto) 17 % (24-48) Monocytes (%) (Auto) 6 % (0-9) Eosinophils (%) (Auto) 1 % (0-3) Basophils (%) (Auto) 1 % (0-3) Neutrophils # (Auto) 9.8 x10^3/uL (1.8-7.7) Lymphocytes # (Auto) 2.2 x10^3/uL (1.0-4.8) Monocytes # (Auto) 0.8 x10^3/uL (0.0-1.1) Eosinophils # (Auto) 0.1 x10^3/uL (0.0-0.7) Basophils # (Auto) 0.1 x10^3/uL (0.0-0.2) Sodium Level 138 mmol/L (136-145) Potassium Level 3.8 mmol/L (3.5-5.1) Chloride Level 103 mmol/L (98-107) Carbon Dioxide Level 24 mmol/L (21-32) Anion Gap 11 (6-14) Blood Urea Nitrogen 12 mg/dL (8-26) Creatinine 0.9 mg/dL (0.7-1.3) Estimated GFR (Cockcroft-Gault) 87.3 BUN/Creatinine Ratio 13 (6-20) Glucose Level 221 mg/dL (70-99) Hemoglobin A1c 5.2 % (4.8-5.6) Calcium Level 8.5 mg/dL (8.5-10.1) Total Bilirubin 0.7 mg/dL (0.2-1.0) Aspartate Amino Transf (AST/SGOT) 22 U/L (15-37) Alanine Aminotransferase (ALT/SGPT) 36 U/L (16-63) Alkaline Phosphatase 58 U/L (46-116) Creatine Kinase 129 U/L (39-308) Creatine Kinase MB (Mass) 1.3 ng/mL (0.0-3.6) Creatine Kinase MB Relative Index 1.0 % (0-4) Troponin I Quantitative < 0.017 ng/mL (0.000-0.055) < 0.017 ng/mL (0.000-0.055) Total Protein 7.0 g/dL (6.4-8.2) Albumin 3.5 g/dL (3.4-5.0) Albumin/Globulin Ratio 1.0 (1.0-1.7) Vitamin B12 Level 640 pg/mL (247-911) Thyroid Stimulating Hormone (TSH) 1.005 uIU/mL (0.358-3.74) Laboratory Tests Test 07/21/19 09:10 07/21/19 12:35 White Blood Count 13.0 x10^3/uL (4.0-11.0) Red Blood Count 5.33 x10^6/uL (4.30-5.70) Hemoglobin 16.4 g/dL (13.0-17.5) Hematocrit 47.0 % (39.0-53.0) Mean Corpuscular Volume 88 fL (79-100) Mean Corpuscular Hemoglobin 31 pg (25-35) Mean Corpuscular Hemoglobin Concent 35 g/dL (31-37) Red Cell Distribution Width 13.5 % (11.5-14.5) Platelet Count 220 x10^3/uL (140-400) Neutrophils (%) (Auto) 75 % (31-73) Lymphocytes (%) (Auto) 17 % (24-48) Monocytes (%) (Auto) 6 % (0-9) Eosinophils (%) (Auto) 1 % (0-3) Basophils (%) (Auto) 1 % (0-3) Neutrophils # (Auto) 9.8 x10^3/uL (1.8-7.7) Lymphocytes # (Auto) 2.2 x10^3/uL (1.0-4.8) Monocytes # (Auto) 0.8 x10^3/uL (0.0-1.1) Eosinophils # (Auto) 0.1 x10^3/uL (0.0-0.7) Basophils # (Auto) 0.1 x10^3/uL (0.0-0.2) Sodium Level 138 mmol/L (136-145) Potassium Level 3.8 mmol/L (3.5-5.1) Chloride Level 103 mmol/L (98-107) Carbon Dioxide Level 24 mmol/L (21-32) Anion Gap 11 (6-14) Blood Urea Nitrogen 12 mg/dL (8-26) Creatinine 0.9 mg/dL (0.7-1.3) Estimated GFR (Cockcroft-Gault) 87.3 BUN/Creatinine Ratio 13 (6-20) Glucose Level 221 mg/dL (70-99) Hemoglobin A1c 5.2 % (4.8-5.6) Calcium Level 8.5 mg/dL (8.5-10.1) Total Bilirubin 0.7 mg/dL (0.2-1.0) Aspartate Amino Transf (AST/SGOT) 22 U/L (15-37) Alanine Aminotransferase (ALT/SGPT) 36 U/L (16-63) Alkaline Phosphatase 58 U/L (46-116) Creatine Kinase 129 U/L (39-308) Creatine Kinase MB (Mass) 1.3 ng/mL (0.0-3.6) Creatine Kinase MB Relative Index 1.0 % (0-4) Troponin I Quantitative < 0.017 ng/mL (0.000-0.055) < 0.017 ng/mL (0.000-0.055) Total Protein 7.0 g/dL (6.4-8.2) Albumin 3.5 g/dL (3.4-5.0) Albumin/Globulin Ratio 1.0 (1.0-1.7) Vitamin B12 Level 640 pg/mL (247-911) Thyroid Stimulating Hormone (TSH) 1.005 uIU/mL (0.358-3.74) Medications Current Medications Ondansetron HCl (Zofran) 4 mg 1X ONCE IV ; Start 07/21/19 at 09:15; Stop 07/21/19 at 09:16; Status DC Ondansetron HCl (Zofran) 4 mg STK-MED ONCE .ROUTE ; Start 07/21/19 at 09:30; Stop 07/21/19 at 09:30; Status DC Ondansetron HCl (Zofran) 4 mg 1X ONCE IVP Last administered on 07/21/19at 09:38; Start 07/21/19 at 09:45; Stop 07/21/19 at 09:46; Status DC Midazolam HCl (Versed) 2.5 mg 1X ONCE IV ; Start 07/21/19 at 10:45; Stop 07/21/19 at 10:48; Status DC Midazolam HCl (Versed) 1 mg 1X ONCE NS Last administered on 07/21/19at 11:05; Start 07/21/19 at 11:00; Stop 07/21/19 at 11:01; Status DC Iohexol (Omnipaque 300 Mg/ml) 75 ml 1X ONCE IV Last administered on 07/21/19at 11:22; Start 07/21/19 at 11:15; Stop 07/21/19 at 11:16; Status DC Ondansetron HCl (Zofran) 4 mg PRN Q4HRS PRN IV NAUSEA/VOMITING; Start 07/21/19 at 15:00 Zolpidem Tartrate (Ambien) 5 mg PRN QHS PRN PO INSOMNIA; Start 07/21/19 at 15:00 Acetaminophen (Tylenol) 650 mg PRN Q4HRS PRN PO TEMP OVER 100.4F OR MILD PAIN; Start 07/21/19 at 15:00 Docusate Sodium (Colace) 100 mg PRN BID PRN PO HARD STOOLS; Start 07/21/19 at 15:00 Lorazepam (Ativan) 0.5 mg PRN Q4HRS PRN PO ANXIETY / AGITATION; Start 07/21/19 at 15:00 Enoxaparin Sodium (Lovenox 40mg Syringe) 40 mg Q24H SQ Last administered on 07/21/19at 15:56; Start 07/21/19 at 15:00 Atorvastatin Calcium (Lipitor) 40 mg QHS PO Last administered on 07/21/19at 21:22; Start 07/21/19 at 21:00 Diclofenac Sodium (Voltaren) 1 caitlyn BID TP Last administered on 07/21/19at 21:22; Start 07/21/19 at 16:30 Vitals/I & O Vital Sign - Last 24 Hours 07/21/19 07/21/19 07/21/19 07/21/19 09:03 09:37 10:07 10:19 Temp 97.5 97.5 Pulse 68 60 60 72 Resp 20 16 16 16 B/P (MAP) 142/83 (102) 138/85 (102) 128/78 (95) 131/85 (100) Pulse Ox 98 92 93 93 O2 Delivery Room Air Room Air Room Air Room Air 07/21/19 07/21/19 07/21/19 07/21/19 10:49 11:04 11:19 11:34 Pulse 74 74 66 72 Resp 16 16 16 16 B/P (MAP) 139/84 (102) 130/78 (95) 152/79 (103) 130/68 (88) Pulse Ox 95 93 97 93 O2 Delivery Room Air Room Air Room Air Room Air 07/21/19 07/21/19 07/21/19 07/21/19 11:49 12:00 12:30 13:00 Pulse 70 64 70 63 Resp 16 16 16 20 B/P (MAP) 132/73 (92) 129/72 (91) 160/90 (113) 144/80 (101) Pulse Ox 93 96 97 96 O2 Delivery Room Air Room Air Room Air Room Air 07/21/19 07/21/19 07/21/19 07/21/19 13:27 14:39 19:15 20:00 Temp 97.8 97.0 97.8 97.0 Pulse 75 62 Resp 18 18 B/P (MAP) 136/79 (98) 123/76 (92) Pulse Ox 99 96 O2 Delivery Room Air Room Air Room Air Room Air 07/21/19 07/22/19 07/22/19 23:00 03:15 07:00 Temp 97.2 97.3 97.5 97.2 97.3 97.5 Pulse 94 77 71 Resp 18 20 18 B/P (MAP) 129/72 (91) 135/70 (91) 132/77 (95) Pulse Ox 96 100 O2 Delivery Room Air Room Air Room Air Intake and Output 07/21/19 07/21/19 07/22/19 15:00 23:00 07:00 Intake Total 300 ml 400 ml Balance 300 ml 400 ml NICCI MIRANDA MD July 22, 2019 08:10
[2019-07-22] MEDS: DICLOFENAC SODIUM 1% TOPICAL GEL 100GM TUBE. TP SCH (09:15)
--- NOTE | 2019-07-22 09:59 | PDOC ---
PROGRESS NOTES Assessment Problems Medical Problems: (1) Dizziness Status: Acute (2) Nausea & vomiting Status: Acute Left vertebral artery's gnosis, excellent flow in the base for artery from the right vertebral artery, so this is unlikely to be clinically relevant History consistent with vestibular neuronitis, patient thinks that it was his vitamins taking on an empty stomach. In any event, exam is now normal, no evidence of peripheral or central vestibular dysfunction. Being ruled out for COVID19, patient asymptomatic, had an abnormal chest on the CT angiogram. Plan No additional neurological tests or treatments needed unless symptoms recur Aim for discharge tomorrow. Could take 81 mg aspirin Is already on statin Subjective No complaints, wants to go home Objective Vital Signs Date Time Temp Pulse Resp B/P (MAP) Pulse Ox O2 Delivery O2 Flow Rate FiO2 07/22/19 07:00 97.5 71 18 132/77 (95) 100 Room Air 97.5 Intake and Output 07/22/19 07:00 Intake Total 700 ml Balance 700 ml Intake Oral 700 ml # Voids 1 PHYSICAL EXAM Alert. Oriented to time, place and person. PERRL. EOMI. CN: no focal findings. Muscle tone: normal. Muscle strength: 5/5 DTR: 2+ Plantar reflex: flexor Gait: normal, including tandem. Sensory exam: no abnormal findings. No cerebellar signs elicited. Review of Relevant I have reviewed the following items connor (where applicable) has been applied. Labs Laboratory Tests Test 07/21/19 09:10 07/21/19 12:35 White Blood Count 13.0 x10^3/uL (4.0-11.0) Red Blood Count 5.33 x10^6/uL (4.30-5.70) Hemoglobin 16.4 g/dL (13.0-17.5) Hematocrit 47.0 % (39.0-53.0) Mean Corpuscular Volume 88 fL (79-100) Mean Corpuscular Hemoglobin 31 pg (25-35) Mean Corpuscular Hemoglobin Concent 35 g/dL (31-37) Red Cell Distribution Width 13.5 % (11.5-14.5) Platelet Count 220 x10^3/uL (140-400) Neutrophils (%) (Auto) 75 % (31-73) Lymphocytes (%) (Auto) 17 % (24-48) Monocytes (%) (Auto) 6 % (0-9) Eosinophils (%) (Auto) 1 % (0-3) Basophils (%) (Auto) 1 % (0-3) Neutrophils # (Auto) 9.8 x10^3/uL (1.8-7.7) Lymphocytes # (Auto) 2.2 x10^3/uL (1.0-4.8) Monocytes # (Auto) 0.8 x10^3/uL (0.0-1.1) Eosinophils # (Auto) 0.1 x10^3/uL (0.0-0.7) Basophils # (Auto) 0.1 x10^3/uL (0.0-0.2) Sodium Level 138 mmol/L (136-145) Potassium Level 3.8 mmol/L (3.5-5.1) Chloride Level 103 mmol/L (98-107) Carbon Dioxide Level 24 mmol/L (21-32) Anion Gap 11 (6-14) Blood Urea Nitrogen 12 mg/dL (8-26) Creatinine 0.9 mg/dL (0.7-1.3) Estimated GFR (Cockcroft-Gault) 87.3 BUN/Creatinine Ratio 13 (6-20) Glucose Level 221 mg/dL (70-99) Hemoglobin A1c 5.2 % (4.8-5.6) Calcium Level 8.5 mg/dL (8.5-10.1) Total Bilirubin 0.7 mg/dL (0.2-1.0) Aspartate Amino Transf (AST/SGOT) 22 U/L (15-37) Alanine Aminotransferase (ALT/SGPT) 36 U/L (16-63) Alkaline Phosphatase 58 U/L (46-116) Creatine Kinase 129 U/L (39-308) Creatine Kinase MB (Mass) 1.3 ng/mL (0.0-3.6) Creatine Kinase MB Relative Index 1.0 % (0-4) Troponin I Quantitative < 0.017 ng/mL (0.000-0.055) < 0.017 ng/mL (0.000-0.055) Total Protein 7.0 g/dL (6.4-8.2) Albumin 3.5 g/dL (3.4-5.0) Albumin/Globulin Ratio 1.0 (1.0-1.7) Vitamin B12 Level 640 pg/mL (247-911) Thyroid Stimulating Hormone (TSH) 1.005 uIU/mL (0.358-3.74) Coronavirus (COVID-19)(PCR) See separate report Laboratory Tests Test 07/21/19 12:35 Troponin I Quantitative < 0.017 ng/mL (0.000-0.055) Coronavirus (COVID-19)(PCR) See separate report Medications Current Medications Ondansetron HCl (Zofran) 4 mg 1X ONCE IV ; Start 07/21/19 at 09:15; Stop 07/21/19 at 09:16; Status DC Ondansetron HCl (Zofran) 4 mg STK-MED ONCE .ROUTE ; Start 07/21/19 at 09:30; Stop 07/21/19 at 09:30; Status DC Ondansetron HCl (Zofran) 4 mg 1X ONCE IVP Last administered on 07/21/19at 09:38; Start 07/21/19 at 09:45; Stop 07/21/19 at 09:46; Status DC Midazolam HCl (Versed) 2.5 mg 1X ONCE IV ; Start 07/21/19 at 10:45; Stop 07/21/19 at 10:48; Status DC Midazolam HCl (Versed) 1 mg 1X ONCE NS Last administered on 07/21/19at 11:05; Start 07/21/19 at 11:00; Stop 07/21/19 at 11:01; Status DC Iohexol (Omnipaque 300 Mg/ml) 75 ml 1X ONCE IV Last administered on 07/21/19at 11:22; Start 07/21/19 at 11:15; Stop 07/21/19 at 11:16; Status DC Ondansetron HCl (Zofran) 4 mg PRN Q4HRS PRN IV NAUSEA/VOMITING; Start 07/21/19 at 15:00 Zolpidem Tartrate (Ambien) 5 mg PRN QHS PRN PO INSOMNIA; Start 07/21/19 at 15:00 Acetaminophen (Tylenol) 650 mg PRN Q4HRS PRN PO TEMP OVER 100.4F OR MILD PAIN; Start 07/21/19 at 15:00 Docusate Sodium (Colace) 100 mg PRN BID PRN PO HARD STOOLS; Start 07/21/19 at 15:00 Lorazepam (Ativan) 0.5 mg PRN Q4HRS PRN PO ANXIETY / AGITATION; Start 07/21/19 at 15:00 Enoxaparin Sodium (Lovenox 40mg Syringe) 40 mg Q24H SQ Last administered on 07/21/19at 15:56; Start 07/21/19 at 15:00 Atorvastatin Calcium (Lipitor) 40 mg QHS PO Last administered on 07/21/19at 21:22; Start 07/21/19 at 21:00 Diclofenac Sodium (Voltaren) 1 caitlyn BID TP Last administered on 07/22/19at 09:15; Start 07/21/19 at 16:30 Vitals/I & O Vital Sign - Last 24 Hours 07/21/19 07/21/19 07/21/19 07/21/19 10:07 10:19 10:49 11:04 Pulse 60 72 74 74 Resp 16 16 16 16 B/P (MAP) 128/78 (95) 131/85 (100) 139/84 (102) 130/78 (95) Pulse Ox 93 93 95 93 O2 Delivery Room Air Room Air Room Air Room Air 07/21/19 07/21/19 07/21/19 07/21/19 11:19 11:34 11:49 12:00 Pulse 66 72 70 64 Resp 16 16 16 16 B/P (MAP) 152/79 (103) 130/68 (88) 132/73 (92) 129/72 (91) Pulse Ox 97 93 93 96 O2 Delivery Room Air Room Air Room Air Room Air 07/21/19 07/21/19 07/21/19 07/21/19 12:30 13:00 13:27 14:39 Temp 97.8 97.8 Pulse 70 63 75 Resp 16 20 18 B/P (MAP) 160/90 (113) 144/80 (101) 136/79 (98) Pulse Ox 97 96 99 O2 Delivery Room Air Room Air Room Air Room Air 07/21/19 07/21/19 07/21/19 07/22/19 19:15 20:00 23:00 03:15 Temp 97.0 97.2 97.3 97.0 97.2 97.3 Pulse 62 94 77 Resp 18 18 20 B/P (MAP) 123/76 (92) 129/72 (91) 135/70 (91) Pulse Ox 96 96 O2 Delivery Room Air Room Air Room Air Room Air 07/22/19 07:00 Temp 97.5 97.5 Pulse 71 Resp 18 B/P (MAP) 132/77 (95) Pulse Ox 100 O2 Delivery Room Air Intake and Output 07/21/19 07/21/19 07/22/19 15:00 23:00 07:00 Intake Total 300 ml 400 ml Balance 300 ml 400 ml MIHAELA HUBBARD MD July 22, 2019 09:59
[2019-07-22] MEDS ORDERED: ASPIRIN 325 MG TABLET PO SCH (11:00)
[2019-07-22 11:08] VITALS: BP 137/82
--- NOTE | 2019-07-22 11:20 | NUR ---
IP: Pt is COVID negative.
--- NOTE | 2019-07-22 12:19 | NUR ---
SW following. Discussed with RN, pt from home, COVID-19 negative. Pt discharging home today with self care. RN advised no SW needs.
[2019-07-22] MEDS ORDERED: ASPI-612 PO (12:21)
[2019-07-22] MEDS ORDERED: ATOR40TA59 PO (12:21)
[2019-07-22] MEDS ORDERED: Diclofenac Sodium TP (12:21)
--- NOTE | 2019-07-22 12:27 | PDOC3 ---
Discharge Summary Visit Information Date of Admission: July 21, 2019 Date of Discharge: July 22, 2019 Admitting Diagnosis: Dizziness, nausea and vomiting Final Diagnosis Problems Medical Problems: (1) Dizziness Status: Acute (2) Nausea & vomiting Status: Acute Brief Hospital Course Allergies Allergies Coded Allergies Type Severity Reaction Last Updated Verified No Known Drug Allergies 07/21/19 No Vital Signs Vital Signs Date Time Temp Pulse Resp B/P (MAP) Pulse Ox O2 Delivery O2 Flow Rate FiO2 07/22/19 11:08 97.8 65 18 137/82 (100) 98 Room Air 97.8 Lab Results Laboratory Tests Test 07/21/19 09:10 07/21/19 12:35 White Blood Count 13.0 x10^3/uL (4.0-11.0) Red Blood Count 5.33 x10^6/uL (4.30-5.70) Hemoglobin 16.4 g/dL (13.0-17.5) Hematocrit 47.0 % (39.0-53.0) Mean Corpuscular Volume 88 fL (79-100) Mean Corpuscular Hemoglobin 31 pg (25-35) Mean Corpuscular Hemoglobin Concent 35 g/dL (31-37) Red Cell Distribution Width 13.5 % (11.5-14.5) Platelet Count 220 x10^3/uL (140-400) Neutrophils (%) (Auto) 75 % (31-73) Lymphocytes (%) (Auto) 17 % (24-48) Monocytes (%) (Auto) 6 % (0-9) Eosinophils (%) (Auto) 1 % (0-3) Basophils (%) (Auto) 1 % (0-3) Neutrophils # (Auto) 9.8 x10^3/uL (1.8-7.7) Lymphocytes # (Auto) 2.2 x10^3/uL (1.0-4.8) Monocytes # (Auto) 0.8 x10^3/uL (0.0-1.1) Eosinophils # (Auto) 0.1 x10^3/uL (0.0-0.7) Basophils # (Auto) 0.1 x10^3/uL (0.0-0.2) Sodium Level 138 mmol/L (136-145) Potassium Level 3.8 mmol/L (3.5-5.1) Chloride Level 103 mmol/L (98-107) Carbon Dioxide Level 24 mmol/L (21-32) Anion Gap 11 (6-14) Blood Urea Nitrogen 12 mg/dL (8-26) Creatinine 0.9 mg/dL (0.7-1.3) Estimated GFR (Cockcroft-Gault) 87.3 BUN/Creatinine Ratio 13 (6-20) Glucose Level 221 mg/dL (70-99) Hemoglobin A1c 5.2 % (4.8-5.6) Calcium Level 8.5 mg/dL (8.5-10.1) Total Bilirubin 0.7 mg/dL (0.2-1.0) Aspartate Amino Transf (AST/SGOT) 22 U/L (15-37) Alanine Aminotransferase (ALT/SGPT) 36 U/L (16-63) Alkaline Phosphatase 58 U/L (46-116) Creatine Kinase 129 U/L (39-308) Creatine Kinase MB (Mass) 1.3 ng/mL (0.0-3.6) Creatine Kinase MB Relative Index 1.0 % (0-4) Troponin I Quantitative < 0.017 ng/mL (0.000-0.055) < 0.017 ng/mL (0.000-0.055) Total Protein 7.0 g/dL (6.4-8.2) Albumin 3.5 g/dL (3.4-5.0) Albumin/Globulin Ratio 1.0 (1.0-1.7) Vitamin B12 Level 640 pg/mL (247-911) Thyroid Stimulating Hormone (TSH) 1.005 uIU/mL (0.358-3.74) Coronavirus (COVID-19)(PCR) See separate report Laboratory Tests Test 07/21/19 12:35 Troponin I Quantitative < 0.017 ng/mL (0.000-0.055) Coronavirus (COVID-19)(PCR) See separate report Brief Hospital Course Mr Dailey is a 58 yo M w/ PMHx hyperlipidemia who p/w dizziness associated with nausea. Patient states sudden onset around 0700 this morning, 07/21/2019 while at work. He notes he took his cholesterol med and vitamins on an empty stomach, which is unusual for him. Patient stated dizziness wass worse with movement and improved with remaining still. Patient denies any associated headache chest pain or shortness of breath. Patient denies any previous similar symptoms. On exam patient is alert noted x4 he has no facial droop slurred speech or focal weakness. He underwent negative CT head and CTA head and neck and found ground glass opacities in bilateral upper lobes and therefore ED tested him for COVID 19, admitted for further care. On further ROS he notes his right elbow has been bothering him at work lately. Glucose 221, WBC 13K, troponin negative. EKG NSR. Symptoms resolved. Seen by neurology, started on aspirin therapy, he will continue his statin therapy at home. His right elbow feels improved with diclofenac gel. CO VID 19 test came back negative. He is ready for discharge home will take the next 5 days off work. Problem list: Nausea and vomiting - IV antiemetics. Will ADAT Dizziness - resolved by the time I examined him. Neurology was called by ED staff Leukocytosis - CBC 13K Abnormal chest CT - no COVID exposures, testing pending. 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 Stopped smoking 22 years ago. Hyperglycemia - will check A1c. father with hx of DM2 HLD - statin Right elbow pain - focal pain at anconeus muscle. Will have PT evaluate for bursitis/tennis elbow exercises. Rest. NSAIDs Consults: Neurology Greater than 30 minutes spent on discharge. Discharge Information Condition at Discharge: Improved Follow Up: Weeks (`1) Disposition/Orders: D/C to Home Scheduled Aspirin (Aspirin Ec) 81 Mg Tablet.dr, 81 MG PO [id number] for HLD for 30 Days, #30 Prescribed by: NICCI MIRANDA MD on 07/22/19 1221 Atorvastatin Calcium (Atorvastatin Calcium) 40 Mg Tablet, 40 MG PO QHS for HLD for 30 Days, #30 Prescribed by: NICCI MIRANDA MD on 07/22/19 1221 [Diclofenac Sodium] 100 GM GEL..GRAM., 1 DARCY TP BID for OA for 30 Days, #60 Prescribed by: NICCI MIRANDA MD on 07/22/19 1221 NICCI MIRANDA MD July 22, 2019 12:27
--- NOTE | 2019-07-22 12:50 | NUR ---
pt discharged home with family. meds and follow up reviewed. pt provided with self monitoring information and work note. IV removed, cath intact. pt stable upon dc.
[2019-07-23] MEDS ORDERED: ASPIRIN ENTERIC COATED 81 MG TABLET.DR. PO SCH (08:00)
== END 2019-07-22 12:45 | disposition home or self-care (01) | DRG 149 ==
LOC: ER 09:03 → 6 SOUTH 11:25
PROVIDERS: ADMIT Internal Medicine; ATTEND Internal Medicine
DX: R42 Dizziness and giddiness (principal); J98.11 Atelectasis; R11.2 Nausea with vomiting, unspecified; R73.9 Hyperglycemia, unspecified; E78.5 Hyperlipidemia, unspecified; I65.02 Occlusion and stenosis of left vertebral artery; M47.812 Spondylosis without myelopathy or radiculopathy, cervical region; Z77.090 Contact with and (suspected) exposure to asbestos; Z83.3 Family history of diabetes mellitus; Z87.891 Personal history of nicotine dependence; Z80.9 Family history of malignant neoplasm, unspecified; D72.829 Elevated white blood cell count, unspecified; Z20.828 Contact with and (suspected) exposure to other viral communicable diseases
CPT/HCPCS: 36415; 70450; 70496; 70498; 71045; 80053; 82553; 82607; 83036; 84443; 84484; 85025; 87635; 93005; 96374; 99285; J1650; J2250; J2405; Q9967; G0378